=== PATIENT | male | born 1995 | race African-American/Black ===

== ENCOUNTER 2018-11-10 14:14 | Emergency (ER) | payer BC, OTHER ==
[2018-11-10 14:25] VITALS: BP 129/69; PULSE 83; TEMP 98.4; BMI 21.5
--- NOTE | 2018-11-10 14:28 | PDOC ---
Rapid Medical Evaluation Chief Complaint: Chest Pain Time Seen by Provider: 11/10/18 14:19 Medical Evaluation: Allergies Allergy/AdvReac Type Severity Reaction Status Date / Time No Known Allergies Allergy Verified 11/10/18 14:24 Vital Signs Temp Pulse Resp BP Pulse Ox 98.4 F 83 18 129/69 100 11/10/18 14:20 11/10/18 14:20 11/10/18 14:20 11/10/18 14:20 11/10/18 14:20 11/10/18 14:25 I have performed a brief in-person evaluation of this patient. The patient presents with a chief complaint of: CP intermittan - worsening this week. some exercise intolerance No fever/ cough Pertinent physical exam findings: pale / mild lethary / denies drugs./alcohol I have ordered the following: EKG The patient will proceed to the ED for further evaluation. Discharge Disposition - Diagnosis Chest pain - Discharge Dispostion Condition at time of disposition: Stable - Referrals - Patient Instructions - Post Discharge Activity
[2018-11-10] MEDS ORDERED: SODIUM CHLORIDE 1,000 ML IV STA (15:24)
[2018-11-10] MEDS ORDERED: IBUPROFEN 400 MG TABLET (FP) PO ONE ×2 (15:26→16:04)
--- NOTE | 2018-11-10 15:32 | PDOC ---
History of Present Illness - General Chief Complaint: Chest Pain Stated Complaint: CHEST PAIN Time Seen by Provider: 11/10/18 14:19 History Source: Patient Exam Limitations: No Limitations - History of Present Illness Initial Comments: Alex Herrign is a healthy 23 yo M who denies having any sig pmh who presents to the [facility] ER via private auto with the CC of chest pain. The patient states he has been experiencing substernal chest pain for the past month on and off which he describes as pressure like in quality. He rates the pain as 4 out of 10. The pain has not worsened or progressed over the past month but the patient feels it is constantly there and bothers him. The patient endorses radiation to the neck but not the back or arm. He denies associated factors including vomiting, diaphoresis, or worsening with exertion. The patient states the pain is worsened when objects rub up against his chest. The pain is not worsened when he takes a deep breath. The pain is also not worsened when he runs or does physical activity. The patient denies any personal or family hx of thrombosis. Denies recent travel /immobility, hormone usage, or recent surgeries. Patient also denies any wrist or ankle swelling, denies calf pain or tenderness and denies smoking cigarettes. Patient also denies recent fevers, chills, or infections. PCP: None PSH: None reported Social Hx: Denies smoking, alcohol, cocaine, or other illicit drug usage. Allergies: NKA, NKDA Past History - Past Medical History Allergies/Adverse Reactions: Allergies Allergy/AdvReac Type Severity Reaction Status Date / Time No Known Allergies Allergy Verified 11/10/18 14:24 Home Medications: Ambulatory Orders NK [No Known Home Medication] 11/10/18 COPD: No - Surgical History Cholecystectomy: No - Immunization History Immunization Up to Date: No - Suicide/Smoking/Psychosocial Hx Smoking History: Never smoked Have you smoked in the past 12 months: No Information on smoking cessation initiated: No Hx Alcohol Use: No Drug/Substance Use Hx: No Review of Systems - Review of Systems Able to Perform ROS?: Yes Comments:: CONSTITUTIONAL: Absent: fever, no chills, no fatigue EYES: Absent: visual changes ENT: Absent: ear pain, no sore throat CARDIOVASCULAR: Present: Chest pain Absent: no palpitations RESPIRATORY: Absent: cough, no SOB GI: Present: Nausea Absent: abdominal pain, no vomiting, no constipation, no diarrhea GENITOURINARY: Absent: dysuria, no frequency, no hematuria MUSKULOSKELETAL: Absent: back pain, no arthralgia, no myalgia SKIN: Absent: rash NEURO: Absent: headache *Physical Exam - Vital Signs Last Vital Signs Temp Pulse Resp BP Pulse Ox 98.4 F 83 18 129/69 100 11/10/18 14:20 11/10/18 14:20 11/10/18 14:20 11/10/18 14:20 11/10/18 14:20 - Physical Exam Comments: GENERAL: Well-appearing, well-nourished. No apparent distress. HEENT: + b/l posterior non-painful adenopathy. Normocephalic, atraumatic. PERRL, EOM intact. oropharynx is clear without exudates. CARDIOVASCULAR: Normal S1, S2. Regular rate and rhythm. PULMONARY: No evidence of respiratory distress. Lungs clear to auscultation bilaterally. No wheezing, rales or rhonchi. ABDOMEN: Soft, non-distended, non-tender. EXTREMITIES: Normal ROM in all four extremities. No gross deformities. SKIN: Warm, dry. No rash NEUROLOGICAL: No focal neurological deficits. Heart Score/ECG Review - History History: Slightly suspicious - Electrocardiogram EKG: Normal - Age Age: </= 45 - Risk Factors Based on the list above the patient has:: No risk factors known - Troponin Troponin: </= normal limit - Score Heart Score - Total: 0 - ECG Intrepretation Rhythm: Regular Rhythm - Squire Squire: Normal - P and VA Atrial Enlargement: Left Prominent R with upright T in V1 (true posterior VT): No Delta Wave(s) Present: No WPW: No - QRS Increased Voltage: Precordial Leads Poor R Wave Progression: No Q Wave Present: No - ST and T Early Repolarization: Yes Non Specific ST-T Wave changes: No Flattened T Waves: No Prolonged Q-T Interval: No - ECG Impressions Normal ECG: Yes Non-specific ST Elevation: No Ischemic Changes: No Torsades steffen Pointes: No WPW: No ED Treatment Course - LABORATORY CBC & Chemistry Diagram: 11/10/18 16:14 11/10/18 16:14 - RADIOLOGY Radiology Studies Ordered: Category Date Time Status CHEST PA & LAT [RAD] Stat Radiology 11/10/18 15:24 Ordered Medical Decision Making - Medical Decision Making Alex Herring is a healthy 23 yo M who denies having any sig pmh who presents to the [facility] ER via private auto with the CC of chest pain. The patient states he has been experiencing substernal chest pain for the past month on and off which he describes as pressure like in quality. He rates the pain as 4 out of 10. The pain has not worsened or progressed over the past month but the patient feels it is constantly there and bothers him. The patient endorses radiation to the neck but not the back or arm. He denies associated factors including vomiting, diaphoresis, or worsening with exertion. The patient states the pain is worsened when objects rub up against his chest. The pain is not worsened when he takes a deep breath. The pain is also not worsened when he runs or does physical activity. Patient also endorses 1 month of lightheadedness associated with his chest discomfort. He denies any syncopal episodes. The patient denies any personal or family hx of thrombosis. Denies recent travel /immobility, hormone usage, or recent surgeries. Patient also denies any wrist or ankle swelling, denies calf pain or tenderness and denies smoking cigarettes. Patient also denies recent fevers, chills, or infections. Vital Signs Temp Pulse Resp BP Pulse Ox 98.4 F 83 18 129/69 100 11/10/18 14:20 11/10/18 14:20 11/10/18 14:20 11/10/18 14:20 11/10/18 14:20 DDx IBNLT: ACS/VT, arrhythmia, electrolyte/metabolic disturbance, MSK chest pain /costochondritis/pleursiy, EBV mono. - Very low concern for PE. Patient can be PERC'ed out and is a Wells score zero. - No concer for dissection as BP is not elevated, patient has no risk factors and there is no radiation to back. Plan: Labs, EKG, CXR, analgesia, IV hydration, re-assess. EKG: NS rate of 75, no ST elevations or depressions, no abnormal TWI, no delta waves, VA - 164, QTc - 417. Labs: Mildly decreased WBC count with a lymphocytic pre-dominance. CXR: Normal Re-assessment: Patient feels well after motrin and IV hydration and requests discharge. Disposition: Will send the patient home with a middle school history teacher FU and patient is aware he will get a call back regarding his mono-spot test next week. *DC/Admit/Observation/Transfer Diagnosis at time of Disposition: Chest pain Qualifiers: Chest pain type: other chest pain Qualified Code(s): R07.89 - Other chest pain ; R07.8 - Other chest pain - Discharge Dispostion Disposition: HOME Condition at time of disposition: Stable Decision to Admit order: No - Referrals Referrals: Iain Fermin MD [Staff Physician] - - Patient Instructions Printed Discharge Instructions: DI for Atypical Chest Pain, DI for Chest Pain Additional Instructions: You came into the ER with chest pain. We did an electrocardiogram and a chest x- ray which were completely normal. We looked at your blood and found you have a slightly low white blood cell count. It is possible this is secondary to a virus. It is also possible this virus is mononucleosis. We sent a lab from your bloodwork to test for this and you will get a call in one week time to let you know if you have Wolfe. We are giving you the number of a middle school history teacher to follow up with. Please make sure to call up the middle school history teacher in the next 3 to 5 days to schedule an appointment to make sure you are being taken care of and getting better. Come back to the ER immediately if your pain worsens, you start vomiting, are having a hard time breathing or have any other new or worsening concerns. Thank you for coming to the [facility] ER. We hope you feel better soon! Print Language: KHMER - Post Discharge Activity
--- NOTE | 2018-11-10 16:17 | PDOC ---
Documentation entered by Magy Jiménez SCRIBE, acting as scribe for Jessenia Castro DO. Jessenia Castro DO: This documentation has been prepared by the Tino bond Adrianna, SCRIBE, under my direction and personally reviewed by me in its entirety. I confirm that the documentation accurately reflects all work, treatment, procedures, and medical decision making performed by me. Attending Attestation - Resident Resident Name: Alex Márquez - ED Attending Attestation I have performed the following: I have examined & evaluated the patient, The case was reviewed & discussed with the resident, I agree w/resident's findings & plan, Exceptions are as noted - HPI HPI: The patient is a 23 Y M, with no significant PMH, who presents for evaluation of 1 month. Patient reports substernal chest pain that is constant, 4/10 in nature, described as a pressure that radiates to his neck, with associated intermittent chest palpitations, and is exacerbated with rubbing or cracking his chest. Pain is unaffected by exertion or deep inspiration. Denies fever, chills, nausea, vomit, SOB, diaphoresis. Allergies: NKA, NKDA Surgical History: None reported Social History: Denies EtOH, tobacco, or illicit drug use 11/10/18 16:10 - Physicial Exam PE: Constitutional: Awake, alert, oriented. No acute distress. Head: Normocephalic. Atraumatic Eyes: PERRL. EOMI. Conjunctivae are not pale. ENT: Mucous membranes are moist and intact. Posterior pharynx without exudates or erythema. Uvula midline. Neck: Supple. Full ROM. No lymphadenopathy. Cardiovascular: Regular rate. Regular rhythm. S1, S2 regular. Distal pulses are 2+ and symmetric. Pulmonary/Chest: +Reproducible right mid-chest tenderness at the chondrocostal junction. No evidence of respiratory distress. Clear to auscultation bilaterally No wheezing, rales or rhonchi. Abdominal: Soft and non-distended. There is no tenderness. No rebound, guarding or rigidity. No organomegaly. No palpable masses. Good bowel sounds. Back: No CVA tenderness. Musculoskeletal: No edema. No cyanosis. No clubbing. Full range of motion in all extremities. Nocalf tenderness. Radial/pedal pulses are intact and 2+ bilaterally Skin: Skin is warm and dry. No petechiae. No purpura. Neurological: Alert and oriented to person, place, and time. Cranial nerves II -XII are grossly intact. Normal speech. Strength is grossly symmetric. No sensory deficits. Psychiatric: Good eye contact. Normal interaction, affect and behavior. 11/10/18 16:10 - Medical Decision Making 11/10/18 16:12 I, Dr. Jessenia Castro, DO, attest that this document has been prepared under my direction and personally reviewed by me in its entirety. I further attest, that it accurately reflects all work, treatment, procedures and medical decision -making performed by me. a/p: 23yo male with no signif pmhx of fam hx with 1m of chest pain that is constant -worse when lifting heavy objects and with palpation of hte chest -has had palpitations -will send labs, ekg, cxr -will need outpt follow up with cards for poss halter for palpitations -pt with reproducible chest wall pain on exam -will add fluids - works outside in the heat -will add motrin for pain 11/10/18 17:07 labs reviewed mildly low wbc and lymphocytic predominance will add monospot cxr clear stable for dc to home Heart Score/ECG Review - ECG Intrepretation Comment:: 11/10/18 16:16 sinus at 75, nl axis, nl interval, early repol anterior leads, no acute st changes
[2018-11-10 16:43] LABS: BASO % 0.5 % (0-2.0); EOS % 0.3 % (0-4.5); HEMATOCRIT 43.9 % (35.4-49); HEMOGLOBIN 15.1 GM/dL (11.7-16.9); LYMPH % 44.6 % (8-40); MCH 32.2 pg (25.7-33.7); MCHC 34.4 g/dl (32.0-35.9); MEAN CELL VOLUME 93.4 fl (80-96); MONO % 6.5 % (3.8-10.2); NEUT % 48.1 % (42.8-82.8); PLATELET COUNT 237 K/MM3 (134-434); RDW 12.7 % (11.9-15.9); WHITE BLOOD COUNT 3.2 K/mm3 (4.0-10.0)
[2018-11-10 16:55] LABS: ALBUMIN 4.2 g/dl (3.4-5.0); BILIRUBIN,TOTAL 0.8 mg/dL (0.2-1); CALCIUM 8.8 mg/dL (8.5-10.1); CREATININE 0.8 mg/dL (0.55-1.3); POTASSIUM 4.2 mmol/L (3.5-5.1); TOT PROT 7.7 g/dl (6.4-8.2)
[2018-11-10 16:57] LABS: MAGNESIUM 2.3 mg/dL (1.8-2.4)
--- NOTE | 2018-11-11 15:22 | EKG ---
Test Reason : Blood Pressure : / mmHG Vent. Rate : 075 BPM Atrial Rate : 075 BPM P-R Int : 164 ms QRS Dur : 090 ms QT Int : 374 ms P-R-T Axes : 068 067 061 degrees QTc Int : 417 ms NORMAL SINUS RHYTHM POSSIBLE LEFT ATRIAL ENLARGEMENT BORDERLINE ECG NO PREVIOUS ECGS AVAILABLE Confirmed by NOAH BYRNE, DAMI ([id number]) on 11/11/2018 3:21:38 PM Referred By: Confirmed By:DAMI ZAMORA MD
== END 2018-11-10 17:54 | disposition home or self-care (01) ==
LOC: JER 14:14
PROC: 3E0337Z Introduction of Electrolytic and Water Balance Substance into Peripheral Vein, Percutaneous Approach (ICD-10-PCS; principal; 2018-11-10)
DX: R07.89 Other chest pain (principal)
CPT/HCPCS: 36415; 71046-TC-FY; 80053; 83735; 84484; 85025; 86308; 93005; 93010; 99282-25; J7030